=== PATIENT | female | born 1980 | race African-American/Black ===

== ENCOUNTER 2018-05-15 11:57 | Emergency (ER) | payer SELFPAY ==
[2018-05-15] MEDS ORDERED: 0.9 % SODIUM CHLORIDE 1,000 ML BAG IV ONE (12:08)
[2018-05-15] MEDS ORDERED: ACETAMINOPHEN 1,000 MG/100 ML BTL IVPB ONE (12:08)
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
[2018-05-15 12:27] LABS: BASO % 0.3 % (0-6); EOS % 3.5 % (0-6); HEMATOCRIT 38.2 % (35.0-47.0); HEMOGLOBIN 12.3 gm/dl (11.6-16.0); LYMPH % 25.3 % (16-45); MEAN CORPUSCULAR HEMOGLOBIN 26.7 pg (27-33); MEAN CORPUSCULAR HGB CONC 32.2 g/dl (32-36); MEAN PLATELET VOLUME 11.9 fl (7.4-10.4); MONO % 7.9 % (0-9); PLATELET COUNT 154 K/uL (130-400); RED CELL DISTRIBUTION WIDTH 12.8 % (11.5-14.5); WHITE BLOOD COUNT W/O DIFF 6.5 K/uL (4.2-12.2)
[2018-05-15 12:39] LABS: BLOOD UREA NITROGEN 10 mg/dL (6-20); CREATININE 0.6 mg/dL (0.5-0.9); EST GLOMERULAR FILTRATION RATE > 60 mL/min
[2018-05-15 12:40] LABS: TOTAL PROTEIN 7.1 g/dL (6.6-8.7)
[2018-05-15 12:42] LABS: GLUCOSE,RANDOM 379 mg/dL (74-109)
[2018-05-15 12:44] LABS: PARTIAL THROMBOPLASTIN TIME 23.6 SECONDS (24.5-39.1); PROTHROMBIN TIME (PATIENT) 10.4 SECONDS (9.5-12.1)
[2018-05-15 12:45] LABS: ALB/GLOB RATIO 1.2 (1.1-1.8); ALBUMIN 3.9 g/dL (4.0-5.0); ALKALINE PHOSPHATASE 50 U/L (35-104); ALT/SGPT 22 U/L (<33); AST/SGOT 24 U/L (10.0-35.0)
[2018-05-15] MEDS ORDERED: MORPHINE SULFATE 10 MG/ML VIAL IVP ONE (12:58)
[2018-05-15 13:31] LABS: URINE APPEARANCE CLEAR; URINE BILIRUBIN NEGATIVE (NEGATIVE); URINE BLOOD TRACE-I (NEGATIVE); URINE COLOR YELLOW; URINE KETONE 15 mg/dL (NEGATIVE); URINE LEUKOCYTE ESTERASE NEGATIVE (NEGATIVE); URINE NITRITE NEGATIVE (NEGATIVE); URINE PROTEIN NEGATIVE (NEGATIVE); URINE UROBILINOGEN 0.2 E.U./dL (0.20 - 1.00)
[2018-05-15 13:33] LABS: URINE GLUCOSE (UA) >=1000 mg/dL (NEGATIVE)
[2018-05-15] MEDS ORDERED: HYDROCODONE/APAP 5/325MG TABLET PO ONE (13:35)
[2018-05-15 13:42] LABS: URINE WBC 0 - 2 (0-2/hpf)
[2018-05-15 13:43] LABS: URINE BACTERIA FEW; URINE SQUAMOUS EPITHELIAL CELL 0 - 2 /hpf
[2018-05-15] MEDS ORDERED: HUMULIN R 100 UNIT/ML VIAL SQ ONE (14:00)
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
== END 2018-05-15 14:53 | disposition home or self-care (01) ==
LOC: ER 11:57
DX: G89.11 Acute pain due to trauma (principal); R10.30 Lower abdominal pain, unspecified; M54.5 Low back pain; M25.552 Pain in left hip; I10 Essential (primary) hypertension; M54.2 Cervicalgia; E11.9 Type 2 diabetes mellitus without complications; Z79.4 Long term (current) use of insulin; V59.50XA Passenger in pick-up truck or van injured in collision with unspecified motor vehicles in traffic accident, initial encounter; Y92.410 Unspecified street and highway as the place of occurrence of the external cause
CPT/HCPCS: 99284 ×2; 96372; 96365; 96375; 83605; 85025; 85730; 85610; 80053; 36416; 81001; 82948; 84703; 72125; 71260; 70450; 74177; Q9967; J2270; J7030